=== PATIENT | female | born 1950 | race Caucasian/White ===

== ENCOUNTER → 2018-02-08 10:45 | Outpatient (CLI) | payer OTHER, SELFPAY ==
--- NOTE | 2018-02-08 | DI.MRI.S_ITS ---
PROCEDURE: MR ANKLE LT WO CON INDICATIONS: LEFT ANKLE PAIN TECHNIQUE: Noncontrast sagittal T1 spin echo and T2 fast spin echo with fat saturation, axial proton density fast spin echo and T2 fast spin echo with fat saturation, coronal T1 spin echo and T2 fast spin echo with fat saturation through the ankle/hindfoot. COMPARISON: None. FINDINGS: Image quality: Excellent. Bones and joints: No bone marrow contusions or fractures. No hindfoot coalitions. Central tibial plafond subchondral signal change and marrow edema extending into the metaphysis is seen, for example image 21 series 8, possibly a small 4 mm osteochondral defect. No pathologic joint effusions. Subchondral cystic change present at the subtalar joint presumably degenerative. There is also talonavicular joint degeneration with a small synovial cyst on image 13 series 7 measuring 3-4 mm. Diffuse midfoot degenerative spurring and sclerosis. Medial structures: The posterior tibialis, flexor digitorum longus, and flexor hallucis longus tendons are intact. The posterior tibial neurovascular bundle appears normal within the tarsal tunnel, without extrinsic mass effect. The deep layer (anterior and posterior tibiotalar ligaments) and superficial layer (tibionavicular, tibiospring, and tibiocalcaneal ligaments) of the deltoid ligament appear normal. The spring ligament components (superomedial calcaneonavicular, medioplantar oblique calcaneonavicular, and inferoplantar longitudinal ligaments) are intact. Lateral structures: The anterior talofibular, calcaneofibular, and posterior talofibular ligaments appear intact. More superiorly, the anterior and posterior tibiofibular ligaments appear intact, as is the intermalleolar ligament. The tibiofibular syndesmosis is normal in width at 2 mm or less. The peroneus longus and brevis tendons demonstrate normal location and morphology. Minimal peroneal tenosynovitis. Adjacent bony peroneal tubercle and retrotrochlear prominence are normal in size. The sinus tarsi demonstrates normal fatty signal, without edema, fibrosis, or cyst formation. Visualized sinus tarsi components (cervical ligament, interosseous talocalcaneal ligament, roots of the inferior extensor retinaculum) appear normal. The calcaneonavicular and calcaneocuboid components of the bifurcate ligament appear intact. The dorsal calcaneocuboid ligament appears intact. Anterior structures: The tibialis anterior, extensor hallucis longus, and extensor digitorum longus tendons appear intact. The dorsal talonavicular ligament appears intact. Posterior and plantar structures: Achilles tendon is intact. Mild medial band plantar fasciitis. IMPRESSION: Subchondral edema and marrow signal change in the region of the central tibial plafond suggestive of small osteochondral defect. No in situ fragment identified. Minimal posterior tibialis, peroneus longus and brevis tenosynovitis. 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 Dictated by: Fransico Hart M.D. on 02/08/2018 at 15:03 Approved by: Fransico Hart M.D. on 02/08/2018 at 15:14
== END ==
PROVIDERS: PCP Family Medicine; Visit Provider Podiatrist
DX: M25.572 Pain in left ankle and joints of left foot (principal); M72.2 Plantar fascial fibromatosis; M19.071 Primary osteoarthritis, right ankle and foot; M71.371 Other bursal cyst, right ankle and foot
CPT/HCPCS: 73721

== ENCOUNTER 2021-04-13 15:11 | Emergency (ER) | payer OTHER, SELFPAY ==
[2021-04-13 15:32] VITALS: BP 125/58; PULSE 63; RESP 18; TEMP 36.3; O2SAT 99; BMI 35.4
--- NOTE | 2021-04-13 15:36 | DI.RAD.S_ITS ---
PROCEDURE: XR KNEE LT 1TO2V INDICATIONS: fall TECHNIQUE: 2 views of the knee were acquired. COMPARISON: [facility], , KNEE 3V RIGHT, 02/17/2016, 16:54. FINDINGS: Bones: Acute fracture involving medial portion of proximal tibial shaft with fracture line extending to lateral tibial plateau near base of tibial spine. There is slight medial and posterior displacement at fracture site. No other fracture or dislocation is seen. No suspicious bony lesions. Soft tissues: Large fat fluid level is seen in suprapatellar joint space consistent with lipohemarthrosis. No suspicious soft tissue calcifications. IMPRESSION: Acute slightly comminuted and mildly displaced left proximal tibial fracture as described above with moderate to large lipohemarthrosis. Dictated by: Kris Astorga M.D. on 04/13/2021 at 15:53 Approved by: Kris Astorga M.D. on 04/13/2021 at 15:54
--- NOTE | 2021-04-13 17:33 | ED.LOWEXIN ---
HPI - Extremity Injury (Lower) <OLIVIA Batista - Last Filed: 04/13/21 21:14> General Chief Complaint: Extremity Injury, Lower Stated Complaint: FELL HIT LEFT KNEE Time Seen by Provider: 04/13/21 17:23 Source: patient Mode of arrival: Wheelchair History of Present Illness HPI Narrative: 70-year-old female presents to the emergency department complaining of left knee pain after a fall happened just prior to arrival. Patient reports that she was standing on an 18 in stool, she felt off hitting her left knee directly on the surface she was standing on, felt immediate pain and has been unable to bear weight with decreased range of motion since. Patient denies any open wound to the area, she endorses that she has a history of diabetes, has not taken any medication prior to arrival. Patient denies hitting her head or any other injury, she denies any ankle or hip pain. She reports that her tetanus is up-to-date. Patient is able to move her ankle, toes, they are still warm, she denies any sensation changes. Related Data Allergies Allergy/AdvReac Type Severity Reaction Status Date / Time vancomycin AdvReac Mild Nausea Verified 04/13/21 18:02 Review of Systems <OLIVIA Batista - Last Filed: 04/13/21 21:14> Review of Systems Narrative: General: denies fever, chills Head/Neck: denies headache, neck pain Eyes: denies visual changes, eye pain Cardio: denies chest pain, palpitations Respiratory: denies shortness of breath, cough GI: denies abdominal pain, nausea, vomiting, or diarrhea : denies dysuria, hematuria MSK: Endorses significant left knee pain, denies any muscle weakness or sensation changes Skin: denies rash, itching Neuro: denies numbness, tingling Patient History <OLIVIA Batista - Last Filed: 04/13/21 21:14> Social History Smoking Status: Never smoker Smoking Status: Never smoker alcohol intake frequency: a few times a month Substance Use Type: does not use Exam <OLIVIA Batista - Last Filed: 04/13/21 21:14> Narrative Exam Narrative: Independently reviewed vitals signs and nursing notes. General: Awake, alert, nontoxic, no cardiorespiratory distress Head/Neck: Atraumatic, neck full range of motion Eyes: EOMI, conjunctiva normal Nose: nares patent, no rhinorrhea Mouth/Throat: moist mucus membranes Cardio: Regular rate and rhythm, no peripheral edema Respiratory: respirations unlabored without wheezing, stridor, or rales. No retractions. GI: Abdomen soft, nontender MSK: Moves all extremities, neurovascularly intact, left knee is edematous, without open wound, mild ecchymosis is visible, patient is sitting in a wheelchair currently and is unable to bear weight, she does not have any lower extremity edema other than her left knee. Did not perform full knee exam as known fracture and is potentially unstable. Skin: Normal capillary refill, no rash Neuro: Normal speech and cognition, normal gait Initial Vital Signs Initial Vital Signs: Vital Signs Temperature 97.3 F L 04/13/21 15:32 Pulse Rate 63 04/13/21 15:32 Respiratory Rate 18 04/13/21 15:32 Blood Pressure 125/58 L 04/13/21 15:32 Pulse Oximetry 99 04/13/21 15:32 <Marlon Wang DO - Last Filed: 04/14/21 05:08> Initial Vital Signs Initial Vital Signs: Vital Signs Temperature 97.3 F L 04/13/21 15:32 Pulse Rate 63 04/13/21 15:32 Respiratory Rate 18 04/13/21 15:32 Blood Pressure 125/58 L 04/13/21 15:32 Pulse Oximetry 99 04/13/21 15:32 Procedures <OLIVIA Batista - Last Filed: 04/13/21 21:14> Orthopedic Splinting/Casting Injury #1: Lower Extremity Injury Location: knee Lower Extremity Immobilizer: posterior splint Post splinting neuro exam: intact and no change Post splinting vascular exam: no change Placed by: Provider Course <OLIVIA Batista - Last Filed: 04/13/21 21:14> Orders Ordered: Discontinued Medications Hydromorphone HCl (Hydromorphone 0.5 Mg Inj) 0.5 mg IV NOW ONE Stop: 04/13/21 19:00 Last Admin: 04/13/21 19:09 Dose: 0.5 mg Documented by: PORFIRIO Ketorolac Tromethamine (Ketorolac 30 Mg/Ml Vial) 15 mg IM NOW ONE Stop: 04/13/21 17:32 Last Admin: 04/13/21 19:10 Dose: 15 mg Documented by: PORFIRIO Methocarbamol (Methocarbamol 500 Mg Tablet) 500 mg PO NOW ONE Stop: 04/13/21 17:32 Last Admin: 04/13/21 18:03 Dose: 500 mg Documented by: ROBBIE Ondansetron HCl (Ondansetron 4 Mg/2 Ml Inj) 4 mg IV NOW ONE Stop: 04/13/21 19:00 Last Admin: 04/13/21 19:09 Dose: 4 mg Documented by: PORFIRIO Oxycodone/Acetaminophen (Oxycodone/Acetaminophen 5/325 Tablet) 1 tab PO NOW ONE Stop: 04/13/21 17:32 Last Admin: 04/13/21 18:03 Dose: 1 tab Documented by: ROBBIE Vital Signs Vital signs: Vital Signs - 8 hr 04/13/21 15:32 04/13/21 19:02 Temperature 97.3 F L Pulse Rate 63 68 Respiratory Rate 18 Blood Pressure 125/58 L 126/58 L Pulse Oximetry 99 90 L <Marlon Wang DO - Last Filed: 04/14/21 05:08> Orders Ordered: Discontinued Medications Hydromorphone HCl (Hydromorphone 0.5 Mg Inj) 0.5 mg IV NOW ONE Stop: 04/13/21 19:00 Last Admin: 04/13/21 19:09 Dose: 0.5 mg Documented by: PORFIRIO Ketorolac Tromethamine (Ketorolac 30 Mg/Ml Vial) 15 mg IM NOW ONE Stop: 04/13/21 17:32 Last Admin: 04/13/21 19:10 Dose: 15 mg Documented by: PORFIRIO Methocarbamol (Methocarbamol 500 Mg Tablet) 500 mg PO NOW ONE Stop: 04/13/21 17:32 Last Admin: 04/13/21 18:03 Dose: 500 mg Documented by: ROBBIE Ondansetron HCl (Ondansetron 4 Mg/2 Ml Inj) 4 mg IV NOW ONE Stop: 04/13/21 19:00 Last Admin: 04/13/21 19:09 Dose: 4 mg Documented by: PORFIRIO Oxycodone/Acetaminophen (Oxycodone/Acetaminophen 5/325 Tablet) 1 tab PO NOW ONE Stop: 04/13/21 17:32 Last Admin: 04/13/21 18:03 Dose: 1 tab Documented by: ROBBIE Vital Signs Vital signs: Vital Signs - 8 hr 04/13/21 15:32 04/13/21 19:02 Temperature 97.3 F L Pulse Rate 63 68 Respiratory Rate 18 Blood Pressure 125/58 L 126/58 L Pulse Oximetry 99 90 L MDM - Extremity Injury (Lower) <Francie Peace, [facility] - Last Filed: 04/13/21 21:14> Lab Data Result diagrams: 04/13/21 19:19 04/13/21 19:19 Labs: Lab Results 04/13/21 04/13/21 Range/Units 19:19 19:19 WBC 11.8 H (4.5-11.0) X10^3/uL RBC 4.23 (4.0-5.2) X10^6/uL Hgb 12.4 (12.0-16.0) g/dL Hct 36.7 (36-46) % MCV 86.8 (80-100) fL MCH 29.2 (26-34) PG MCHC 33.6 (30-36) % RDW 13.2 (11.6-14.8) % Plt Count 236 (150-400) X10^3/uL Neut % (Auto) 76.0 H (50-75) % Lymph % (Auto) 12.0 L (25-40) % Archuleta % (Auto) 10.2 (3-14) % Eos % (Auto) 1.4 L (2-4) % Baso % (Auto) 0.4 (0-2) % Neut # (Auto) 9000 H (4494-9052) /uL Lymph # (Auto) 1400 (0225-8174) /uL Archuleta # (Auto) 1200 H (0-900) /uL Eos # (Auto) 200 (0-450) /uL Baso # (Auto) 100 (0-100) /uL Sodium 139 (137-145) mmol/L Potassium 4.0 (3.4-5.1) mmol/L Chloride 104 (98-107) mmol/L Carbon Dioxide 26 (22-32) mmol/L BUN 20 H (7-17) mg/dL Creatinine 0.73 (0.52-1.04) mg/dL Estimated GFR > 60.0 (>60) mL/min BUN/Creatinine Ratio 27.4 H (6-22) Glucose 121 H (80-110) mg/dL Calcium 9.6 (8.4-10.2) mg/dL Imaging Data Extremity x-ray #1: Radiologist's Impression: PROCEDURE:? XR KNEE LT 1TO2V ? INDICATIONS:? fall ? TECHNIQUE:? 2 views of the knee were acquired.? ? COMPARISON:? [facility], , KNEE 3V RIGHT, 02/17/2016, 16:54. ? FINDINGS:? ? Bones:? Acute fracture involving medial portion of proximal tibial shaft with fracture line extending to lateral tibial plateau near base of tibial spine.? There is slight medial and posterior displacement at fracture site.? No other fracture or dislocation is seen.? No suspicious bony lesions.? ? Soft tissues:? Large fat fluid level is seen in suprapatellar joint space consistent with lipohemarthrosis.? No suspicious soft tissue calcifications.? ? ? IMPRESSION:? Acute slightly comminuted and mildly displaced left proximal tibial fracture as described above with moderate to large lipohemarthrosis. ? ? Dictated by: Kris Astorga M.D. on 04/13/2021 at 15:53 ? ? Approved by: Kris Astorga M.D. on 04/13/2021 at 15:54 ? MDM Narrative Medical decision making narrative: 70-year-old female presents emergency department with complaint of left knee pain after she fell onto her left knee just prior to arrival. Patient reports that she was on an 18 in stool and she fell off hitting her left knee on the stool without any other injuries. X-ray shows an acute slightly comminuted and mildly displaced left proximal tibial plateau fracture with extension extending to lateral tibial plateau near the base of the tibial spine. There is slight medial and posterior displacement of the fracture site. There is no other fracture or dislocations, there is however a large fat fluid level seen in the suprapatellar joint space consistent with lipohemarthrosis. Consult with [facility] for a trauma transfer I spoke with Melvin from the transfer center who connected me to Dr. Leila Schrepel the ED attending who accepts this patient for transfer. Patient's COVID antigen was negative, she was given Percocet, methocarbamol, and IV Dilaudid for pain. Her tetanus is up-to-date, films were pushed, patient was splinted with a posterior long leg splint. CMS was intact distally, she tolerated this well after pain medication. labs were obtained and were unremarkable. Ground transport was obtained, patient was transferred to [facility] by EMS. Patient is appropriate and amenable to discharge home. Vital signs are stable on repeat examination is unremarkable. Patient has been informed of results. Patient has been given strict return to ER precautions for any new or worsening symptoms. Patient understands to follow up closely with outpatient providers as instructed. Patient understands plan and agrees to discharge home. All questions and concerns answered at this time. <Marlon Wang, - Last Filed: 04/14/21 05:08> Lab Data Labs: Lab Results 04/13/21 04/13/21 Range/Units 19:19 19:19 WBC 11.8 H (4.5-11.0) X10^3/uL RBC 4.23 (4.0-5.2) X10^6/uL Hgb 12.4 (12.0-16.0) g/dL Hct 36.7 (36-46) % MCV 86.8 (80-100) fL MCH 29.2 (26-34) PG MCHC 33.6 (30-36) % RDW 13.2 (11.6-14.8) % Plt Count 236 (150-400) X10^3/uL Neut % (Auto) 76.0 H (50-75) % Lymph % (Auto) 12.0 L (25-40) % Archuleta % (Auto) 10.2 (3-14) % Eos % (Auto) 1.4 L (2-4) % Baso % (Auto) 0.4 (0-2) % Neut # (Auto) 9000 H (0710-0309) /uL Lymph # (Auto) 1400 (8243-9010) /uL Archuleta # (Auto) 1200 H (0-900) /uL Eos # (Auto) 200 (0-450) /uL Baso # (Auto) 100 (0-100) /uL Sodium 139 (137-145) mmol/L Potassium 4.0 (3.4-5.1) mmol/L Chloride 104 (98-107) mmol/L Carbon Dioxide 26 (22-32) mmol/L BUN 20 H (7-17) mg/dL Creatinine 0.73 (0.52-1.04) mg/dL Estimated GFR > 60.0 (>60) mL/min BUN/Creatinine Ratio 27.4 H (6-22) Glucose 121 H (80-110) mg/dL Calcium 9.6 (8.4-10.2) mg/dL <Marlon Wang DO - Last Filed: 04/14/21 05:08> Critical Care Time Critical Care Time: Yes Total Critical Care Time: 45 Attestation: The high probability of a clinically significant, sudden or life threatening deterioration of the [MSK/NV] system(s) required my full and direct attention, intervention and personal management. The aggregate critical care time was [45] minutes. This time is in addition to time spent performing reported procedures but includes the following: [x] Data Review and interpretation [x] Patient assessment and monitoring of vital signs [x] Documentation [x] Medication orders and management Discharge Plan Departure Patient Disposition: [facility] Clinical Impression: Fracture of tibial plateau, closed Qualifiers: Encounter type: initial encounter Laterality: left Qualified Code(s): S82.142A - Displaced bicondylar fracture of left tibia, initial encounter for closed fracture Referrals: Hector Ely DO [Primary Care Provider] -
[2021-04-13] MEDS: methocarbamoL 500 MG TABLET PO (18:03)
[2021-04-13] MEDS: OXYCODONE/ACETAMINOPHEN 5/325 TABLET 1 TAB PO (18:03)
[2021-04-13 19:02] VITALS: BP 126/58; PULSE 68; O2SAT 90
[2021-04-13] MEDS: ONDANSETRON 4 MG/2 ML INJ IV (19:09)
[2021-04-13] MEDS: HYDROMORPHONE 0.5 MG INJ IV (19:09)
[2021-04-13] MEDS: KETOROLAC 30 MG/ML VIAL 15 MG IM (19:10)
[2021-04-13 19:38] LABS: BUN Creatinine Ratio 27.4 (6-22); Blood Urea Nitrogen 20 mg/dL (7-17); Calcium 9.6 mg/dL (8.4-10.2); Carbon Dioxide 26 mmol/L (22-32); Chloride 104 mmol/L (98-107); Estimated Glomerular Filt Rate > 60.0 mL/min (>60); Glucose 121 mg/dL (80-110); HEMOLYSIS < 15 (0-50); Sodium 139 mmol/L (137-145)
[2021-04-13 19:45] LABS: Add Manual Diff / Slide Review NO; Basophils Absolute Auto 100 /uL (0-100); Basophils Percent Auto 0.4 % (0-2); Eosinophils Absolute Auto 200 /uL (0-450); Eosinophils Percent Auto 1.4 % (2-4); Hematocrit 36.7 % (36-46); Hemoglobin 12.4 g/dL (12.0-16.0); Lymphocytes Absolute Auto 1400 /uL (1100-4500); Mean Corpuscular HGB Conc 33.6 % (30-36); Mean Corpuscular Hemoglobin 29.2 PG (26-34); Mean Corpuscular Volume 86.8 fL (80-100); Monocytes Absolute Auto 1200 /uL (0-900); Monocytes Percent Auto 10.2 % (3-14); Neutrophils Absolute Auto 9000 /uL (1500-7000); Platelet Count 236 X10^3/uL (150-400); Red Blood Cell Count 4.23 X10^6/uL (4.0-5.2); Red Cell Distribution Width 13.2 % (11.6-14.8); White Blood Cell Count 11.8 X10^3/uL (4.5-11.0)
== END 2021-04-13 19:49 | disposition short-term general hospital (02) ==
PROVIDERS: Emergency Provider Nurse Practitioner Critical Care Medicine; PCP Family Medicine
DX: S82.142A Displaced bicondylar fracture of left tibia, initial encounter for closed fracture (principal); W07.XXXA Fall from chair, initial encounter
CPT/HCPCS: 29505; 36415; 73560; 80048; 85025; 96372; 96374; 96375; 99284; J1170; J1885; J2405

== ENCOUNTER → 2021-09-07 15:20 | Outpatient (CLI) | payer OTHER, SELFPAY | PROVIDERS: PCP Family Medicine; Referring Provider Family Medicine; Visit Provider Family Medicine | DX: Z13.820 Encounter for screening for osteoporosis (principal); M85.851 Other specified disorders of bone density and structure, right thigh; M85.852 Other specified disorders of bone density and structure, left thigh; Z78.0 Asymptomatic menopausal state | CPT/HCPCS: 77080 ==

== ENCOUNTER → 2023-06-14 14:25 | Outpatient (CLI) | payer OTHER, SELFPAY ==
--- NOTE | 2023-06-14 | DI.ECHO.S_ITS ---
[place] [facility] +---------+ : : [address] : : : : [id number] : : : : Phone: [phone] Echocardiogram Report + + :Name: ABRAM HIGUERA Study Date: 06/14/2023 Height: 62 in : :[facility] ReadingLocation: Weight: 215 lb : : Gender: Female BSA: 2.0 m2 : :: 1950 Age: 72 yrs BP: 137/77 mmHg: :Reason For Study: DYSPNEA : :Ordering Physician: : :JACKIE SEALS Performed By: Harlan Alvarado : :Referring: JACKIE SEALS : + + Interpretation Summary The ejection fraction is estimated to be 60-65%. Grade I diastolic dysfunction. The right ventricular systolic function is normal. No significant valvular abnormality. The IVC is of normal diameter and collapses greater than 50% with a sniff. This suggests a low right atrial pressure of 3 mm Hg. Procedure: A two-dimensional transthoracic echocardiogram with color flow and Doppler was performed. The study quality was technically adequate. There is no prior echocardiogram noted for this patient. The patient was in normal sinus rhythm during the exam. The heart rate ranged between 66-88 bpm during the study. Left Ventricle: The left ventricle is normal in size and wall thickness. The ejection fraction is estimated to be 60-65%. Grade I diastolic dysfunction. Right Ventricle: The right ventricle is normal size. The right ventricular systolic function is normal. Atria: The left atrial size is normal. Right atrial size is normal. The interatrial septum grossly appears intact with no obvious evidence for an atrial septal defect. Mitral Valve: The mitral valve is normal in structure and function. There is no mitral valve stenosis. There is trace mitral regurgitation. Aortic Valve: The aortic valve is trileaflet. There is no aortic valve stenosis. No aortic regurgitation is present. Tricuspid Valve: The tricuspid valve is normal in structure and function. There has been no significant change since the previous study. No tricuspid regurgitation. Pulmonic Valve: The pulmonic valve is not well visualized. There is no pulmonic valvular stenosis. There is no pulmonic valvular regurgitation. Great Vessels: The aortic root is normal size. The ascending aorta could not be visualized. The IVC is of normal diameter and collapses greater than 50% with a sniff. This suggests a low right atrial pressure of 3 mm Hg. Pericardium/ Pleura There is no pericardial effusion. There is no pleural effusion. MMode/2D Measurements & Calculations LVIDd: 4.6 cm LVOT diam: 2.0 cm LVIDs: 2.7 cm Ao root diam: 3.0 cm FS: 42.1 % Ao Arch Diam (Prox Trans): 2.2 cm IVSd: 0.94 cm LVPWd: 0.88 cm LV marino. diameter/BSA (cm/m^2): 2.3 LV sys. diameter/BSA (cm/m^2): 1.4 LA A2 area: 15.7 cm2 RA long axis: 3.8 cm LA A4 area: 12.9 cm2 RA area: 11.3 cm2 LA length (vol): 4.7 cm RA vol: 28.5 ml LA vol: 36.3 ml RA : 14.4 ml/m2 LA vol index: 18.4 ml/m2 IVC diam: 1.8 cm RVD1 (basal): 3.5 cm RVD2 (mid): 3.3 cm TAPSE: 2.4 cm Doppler Measurements & Calculations Ao V2 max: 158.9 cm/sec LVOT Max Blake: 119.0 cm/sec Ao V2 mean: 114.5 cm/sec LV V1 max P.7 mmHg Ao max P.1 mmHg LV V1 VTI: 29.3 cm Ao mean P.9 mmHg RANJITH(I,D): 2.5 cm2 Ao V2 VTI: 36.2 cm RANJITH(V,D): 2.3 cm2 sev ratio: 0.81 RANJITH indexed to BSA (cm^2/m^2): 1.3 MV E max blake: 77.0 cm/sec PA V2 max: 95.2 cm/sec MV A max blake: 102.6 cm/sec PA V2 mean: 65.3 cm/sec MV E/A: 0.75 PA mean P.9 mmHg Med Peak E' Blake: 5.7 cm/sec PA pr(Accel): 29.3 mmHg E/E' med: 13.5 Lat Peak E' Blake: 7.1 cm/sec E/E' lat: 10.8 E/e' average: 12.1 MV dec time: 0.18 sec SV(LVOT): 90.4 ml Reading Physician:PANTERA
== END ==
LOC: ECHO 14:26
PROVIDERS: PCP Nurse Practitioner Family; Referring Provider Nurse Practitioner Family; Visit Provider Nurse Practitioner Family
DX: R06.09 Other forms of dyspnea (principal); I10 Essential (primary) hypertension; E11.9 Type 2 diabetes mellitus without complications; Z82.49 Family history of ischemic heart disease and other diseases of the circulatory system
CPT/HCPCS: 93306